=== PATIENT | male | born 1965 | race Hispanic/Latino ===

== ENCOUNTER 2022-02-10 09:47 | Inpatient (IN) | payer BC, OTHER, SELFPAY ==
[2022-02-10] MEDS ORDERED: levETIRAcetam 500 MG/5 ML VIAL ONE (09:58)
[2022-02-10] MEDS ORDERED: LORazepam 2 MG/ML SYR.(CARPUJECT) ONE (10:05)
[2022-02-10 10:09] LABS: Hemoglobin 16.6 g/dL (14.0-18.0); Mean Corpuscular HGB CONC 31.6 g/dL (32.0-36.0); Mean Corpuscular Hemoglobin 29.1 pg (27.0-31.0); Mean Corpuscular Volume 92.1 fl (78.0-98.0); Platelet Count 242 10x3/uL (130-400); RBC Distribution Width 11.9 % (11.5-14.5); White Blood Cell (WBC) Count 12.3 10x3/uL (4.8-10.8)
[2022-02-10] MEDS ORDERED: Rocuronium Bromide 10 MG/ML (10ML VIAL) ONE ×2 (10:11→10:12)
[2022-02-10 10:17] LABS: PTT 28.4 sec (22.9-36.1); Prothrombin Time 14.4 sec (12.0-14.7)
[2022-02-10 10:18] LABS: INR-International Normal Ratio 1.1
[2022-02-10 10:22] LABS: ALT (SGPT) 32 U/L (8-55); AST (SGOT) 20 U/L (5-34); Albumin 4.7 g/dL (3.5-5.0); Alkaline Phosphatase 114 U/L (40-110); Anion Gap 25 mmol/L (10-20); BUN (Urea Nitrogen) 19 mg/dL (8.4-25.7); Bilirubin, Total 0.6 mg/dL (0.2-1.2); CK (CPK) 139 U/L (30-200); Calc. Creatinine Clearance 0 mL/min (70-130); Calcium 10.4 mg/dL (7.8-10.44); Carbon Dioxide 18 mmol/L (22-29); Chloride 108 mmol/L (98-107); Estimated GFR 86; Globulin 4.1 g/dL (2.4-3.5); Glucose 151 mg/dL (70-105); Protein, Total 8.8 g/dL (6.0-8.3); Sodium 147 mmol/L (136-145)
[2022-02-10] MEDS ORDERED: Propofol 1,000 MG/100 ML VIAL IV ONE ×2 (10:23→12:40)
[2022-02-10 10:28] LABS: Eosinophils 3 % (0-10); Lymphocytes 46 % (21-51); MDiff Complete? YES; Monocytes 4 % (0-10); Neutrophil 45 % (42-75); Platelet Morphology Comment Appears Adequate; RBC Morphology Normal
[2022-02-10] MEDS ORDERED: Magnevist 469MG/ML 20 ML VIAL ONE (10:35)
[2022-02-10 10:38] LABS: Bilirubin Negative (Negative); Blood, Urine Large (Negative); Glucose, Urine (Dipstick) Negative (Negative); Ketone, Urine Negative (Negative); Leukocyte Negative (Negative); Nitrite Negative (Negative); Protein, Urine (Dipstick) 30 mg/dL (Neg-Trace); Urobilinogen 0.2 mg/dL (Less than 2); pH, Urine 5.5 (5.0-9.0)
[2022-02-10 10:40] LABS: Acetaminophen Less than 10.0 mcg/mL (10.0-30.0); Alcohol Less than 10 mg/dL (Less than 10); Salicylate Less than 8.0 mg/dL (15.0-30.0)
[2022-02-10 10:41] LABS: Clarity Hazy (Clear)
[2022-02-10 10:42] LABS: Specific Gravity, Urine 1.023 (1.002-1.036)
[2022-02-10 10:44] LABS: Amphetamine Not Detected (NotDetected); Barbiturates Screen Not Detected (NotDetected); Benzodiazepine Screen Not Detected (NotDetected); Cocaine Metabolite Screen Not Detected (NotDetected); Methadone Not Detected (NotDetected); Methamphetamine Not Detected (NotDetected); Opiate Screen Not Detected (NotDetected); Oxycodone Screen Not Detected (NotDetected); Phencyclidine (PCP) Not Detected (NotDetected); THC/Cannabinoid Screen Not Detected (NotDetected); Tricyclic Screen Not Detected (NotDetected)
[2022-02-10 10:47] LABS: Bacteria/HPF None Seen HPF (None Seen); RBC/HPF Greater than 50 HPF (0-3); Sperm/HPF 2+ HPF (None Seen); Squamous Epithelial 0-3 HPF (0-3)
[2022-02-10 11:01] LABS: Analyzer IN Cardio ER; Calcium, Ionized (venous) 1.09 mmol/L (1.16-1.32); Chloride (VBG) 105 mmol/L (98-106); Hemoglobin (Hb) 16.8 g/dL (13.1-17.2); Potassium (VBG) 3.44 mmol/L (3.70-5.30); Sodium 141.5 mmol/L (133-146)
[2022-02-10 11:10] LABS: Analyzer IN Cardio ER; Base Excess (BEa) -8.8 mEq/L (-2.0 to +3.0); CO2 Tension 41.7 mmHg (35.0-45.0); Calcium, Ionized (arterial) 1.13 mmol/L (1.12-1.30); Carboxyhemoglobin (COHb) 0.4 gm% (0.0-3.0); Hemoglobin (Hb) 14.7 g/dL (14.0-18.0); O2 Tension (PaO2), arterial 72.8 mmHg (80.0-100.0); Potassium - ABG Lab 3.74 mmol/L (3.70-5.30); pH, Arterial 7.25 (7.35-7.45)
[2022-02-10 11:22] LABS: Actual Bicarbonate (HCO3v) 14 mEq/L (22-28); pH (venous) 7.15 (7.32-7.43)
[2022-02-10 11:23] LABS: Puncture Site RRA
[2022-02-10 11:24] LABS: ALV-art Gradient 231.575 mmHg (0-20)
[2022-02-10] MEDS ORDERED: Electrolyte Replacement Protocol 1 EACH IVPB PRN (12:08)
[2022-02-10] MEDS ORDERED: Ondansetron PF 4 MG/2 ML Vial IVP PRN (12:08)
[2022-02-10] MEDS ORDERED: Acetaminophen 650 MG Suppository PR PRN (12:08)
[2022-02-10] MEDS ORDERED: Dextrose 50% Abboject 50 ML SYRINGE SLOW IVP PRN (12:08)
[2022-02-10] MEDS ORDERED: Dextrose 5% in Water 1,000 ML IV PRN (12:08)
[2022-02-10] MEDS ORDERED: Insulin Regular 300 UNITS/3 ML VIAL SC PRN (12:08)
[2022-02-10] MEDS ORDERED: Ventilator Sedation Protocol 1 EACH FS SCH (12:15)
[2022-02-10 12:26] LABS: SARS-CoV-2 NAA Rapid Test Not Detected (NotDetected)
[2022-02-10] MEDS ORDERED: Lorazepam 2 MG/ML VIAL SLOW IVP PRN (12:28)
[2022-02-10] MEDS ORDERED: Midazolam HCl 2 mg/2 ml Vial SLOW IVP PRN (12:35)
[2022-02-10] MEDS ORDERED: DISCONTINUE PREVIOUS NARCOTIC PAIN MEDICATIONS AND BENZODIAZEPINES FS SCH (12:45)
[2022-02-10] MEDS ORDERED: Propofol BOLUS 1,000 MG/100 ML VIAL IV PRN (12:45)
[2022-02-10] MEDS ORDERED: Fentanyl CADD 100 ML IV SCH (12:45)
[2022-02-10] MEDS ORDERED: Fentanyl BOLUS 250 ML IVPB PRN (12:45)
[2022-02-10] MEDS: Morphine 4 MG/ML VIAL SLOW IVP PRN (14:33)
[2022-02-10] MEDS: Lactated Ringer's 1,000 ML IV SCH ×2 (14:33→22:22)
[2022-02-10 14:42] LABS: Lactic Acid 3.1 mmol/L (0.5-2.2)
[2022-02-10] MEDS: Propofol 1,000 MG/100 ML VIAL IV PRN ×4 (15:35→23:19)
[2022-02-10] MEDS ORDERED: Iopamidol-370 76% 500 ML 1 ML ONE (15:57)
[2022-02-10 18:58] LABS: Lactic Acid 2.5 mmol/L (0.5-2.2)
[2022-02-10] MEDS: levETIRAcetam 500 MG/5 ML VIAL SLOW IVP SCH (20:08)
[2022-02-10] MEDS: Famotidine/PF 20 mg/2ml Vial SLOW IVP SCH (20:08)
[2022-02-10 22:18] LABS: Lactic Acid 2.3 mmol/L (0.5-2.2)
[2022-02-11] MEDS ORDERED: Magnesium 2 GM/50 ML(in water) 2 GM in Premix Bag 1 BAG IVPB SCH ×2 (02:30→20:00)
[2022-02-11] MEDS: Propofol 1,000 MG/100 ML VIAL IV PRN ×3 (02:55→11:40)
[2022-02-11 04:32] LABS: #Lymphocytes 1.8 thou/uL (1.20-3.40); #Monocytes 1.2 thou/uL (0.11-0.59); #Neutrophils 9.3 thou/uL (1.40-6.50); %Basophils 0.3 % (0.0-1.0); %Eosinophils 0.2 % (0.0-10.0); %Lymphocytes 14.7 % (21.0-51.0); %Neutrophils 74.9 % (42.0-75.0); Hemoglobin 14.6 g/dL (14.0-18.0); Mean Corpuscular HGB CONC 34.3 g/dL (32.0-36.0); Mean Corpuscular Hemoglobin 30.6 pg (27.0-31.0); Mean Corpuscular Volume 89.3 fl (78.0-98.0); Mean Platelet Volume 9.1 fL (7.4-10.4); Platelet Count 207 10x3/uL (130-400); Red Blood Cell (RBC) Count 4.78 mill/uL (4.70-6.10); White Blood Cell (WBC) Count 12.4 10x3/uL (4.8-10.8)
[2022-02-11 05:01] LABS: Anion Gap 12 mmol/L (10-20); BUN (Urea Nitrogen) 11 mg/dL (8.4-25.7); Calc. Creatinine Clearance 132 mL/min (70-130); Calcium 8.7 mg/dL (7.8-10.44); Carbon Dioxide 24 mmol/L (22-29); Chloride 104 mmol/L (98-107); Estimated GFR 102; Glucose 146 mg/dL (70-105); Magnesium 2.6 mg/dL (1.6-2.6); Potassium 3.8 mmol/L (3.5-5.1); Sodium 136 mmol/L (136-145)
[2022-02-11 05:55] VITALS: BMI 33.9
[2022-02-11] MEDS: Morphine 4 MG/ML VIAL SLOW IVP PRN (07:58)
[2022-02-11] MEDS: Famotidine/PF 20 mg/2ml Vial SLOW IVP SCH ×2 (08:08→20:38)
[2022-02-11] MEDS: levETIRAcetam 500 MG/5 ML VIAL SLOW IVP SCH ×2 (08:08→20:38)
[2022-02-11] MEDS: Lactated Ringer's 1,000 ML IV SCH ×2 (08:18→19:14)
[2022-02-11] MEDS ORDERED: Piperacillin/Tazobactam 3.375 GM in Sodium Chloride 0.9% 100 ML IVPB SCH (09:15)
[2022-02-11] MEDS ORDERED: Piperacillin/Tazobactam 2.25 GM in Sodium Chloride 0.9% 100 ML IVPB SCH (12:00)
[2022-02-11] MEDS: Piperacillin/Tazobactam 3.375 GM in Sodium Chloride 0.9% 100 ML IVPB SCH ×2 (14:39→21:35)
[2022-02-11 17:55] LABS: #Lymphocytes 1.6 thou/uL (1.20-3.40); #Monocytes 1.3 thou/uL (0.11-0.59); #Neutrophils 11.4 thou/uL (1.40-6.50); %Basophils 0.3 % (0.0-1.0); %Eosinophils 0.1 % (0.0-10.0); %Lymphocytes 11.1 % (21.0-51.0); %Monocytes 8.9 % (0.0-10.0); %Neutrophils 79.6 % (42.0-75.0); Hemoglobin 14.4 g/dL (14.0-18.0); Mean Corpuscular HGB CONC 33.5 g/dL (32.0-36.0); Mean Corpuscular Hemoglobin 30.1 pg (27.0-31.0); Mean Corpuscular Volume 89.8 fl (78.0-98.0); Mean Platelet Volume 8.9 fL (7.4-10.4); Platelet Count 207 10x3/uL (130-400); RBC Distribution Width 11.9 % (11.5-14.5); Red Blood Cell (RBC) Count 4.79 mill/uL (4.70-6.10); White Blood Cell (WBC) Count 14.4 10x3/uL (4.8-10.8)
[2022-02-11] MEDS: Acetaminophen 325 MG TAB PO PRN (18:03)
[2022-02-11 18:23] LABS: Lactic Acid 1.2 mmol/L (0.5-2.2)
[2022-02-11 18:24] LABS: ALT (SGPT) 20 U/L (8-55); AST (SGOT) 14 U/L (5-34); Albumin 3.8 g/dL (3.5-5.0); Alkaline Phosphatase 88 U/L (40-110); Anion Gap 10 mmol/L (10-20); BUN (Urea Nitrogen) 13 mg/dL (8.4-25.7); Bilirubin, Total 1.2 mg/dL (0.2-1.2); Calc. Creatinine Clearance 125 mL/min (70-130); Carbon Dioxide 27 mmol/L (22-29); Chloride 104 mmol/L (98-107); Estimated GFR 101; Globulin 3.5 g/dL (2.4-3.5); Glucose 141 mg/dL (70-105); Potassium 3.7 mmol/L (3.5-5.1); Protein, Total 7.3 g/dL (6.0-8.3); Sodium 137 mmol/L (136-145)
[2022-02-12] MEDS: Lactated Ringer's 1,000 ML IV SCH ×3 (00:09→21:05)
[2022-02-12 04:19] LABS: Hemoglobin A1c 6.7 % (4.0-6.0)
[2022-02-12 04:35] LABS: Magnesium 2.2 mg/dL (1.6-2.6)
[2022-02-12] MEDS: Piperacillin/Tazobactam 3.375 GM in Sodium Chloride 0.9% 100 ML IVPB SCH ×3 (05:18→21:03)
[2022-02-12] MEDS: levETIRAcetam 500 MG/5 ML VIAL SLOW IVP SCH (08:25)
[2022-02-12] MEDS: Famotidine/PF 20 mg/2ml Vial SLOW IVP SCH (08:25)
[2022-02-12] MEDS ORDERED: traMADol HCl 50 MG TAB PO SCH (10:00)
[2022-02-12] MEDS: Acetaminophen 325 MG TAB PO PRN (13:56)
[2022-02-12 16:24] LABS: ALT (SGPT) 17 U/L (8-55); AST (SGOT) 15 U/L (5-34); Albumin 3.7 g/dL (3.5-5.0); Alkaline Phosphatase 84 U/L (40-110); Anion Gap 12 mmol/L (10-20); BUN (Urea Nitrogen) 11 mg/dL (8.4-25.7); Bilirubin, Total 0.9 mg/dL (0.2-1.2); Calc. Creatinine Clearance 132 mL/min (70-130); Calcium 8.8 mg/dL (7.8-10.44); Carbon Dioxide 25 mmol/L (22-29); Chloride 104 mmol/L (98-107); Estimated GFR 102; Globulin 3.5 g/dL (2.4-3.5); Glucose 120 mg/dL (70-105); Potassium 3.4 mmol/L (3.5-5.1); Protein, Total 7.2 g/dL (6.0-8.3); Sodium 138 mmol/L (136-145)
[2022-02-12] MEDS: Insulin Regular 300 UNITS/3 ML VIAL SC PRN (17:24)
[2022-02-12] MEDS ORDERED: HYDROcodone/Acetaminophen 5/325 mg Tablet PO SCH (20:11)
[2022-02-12] MEDS: Famotidine 20 MG TAB PO SCH (21:03)
[2022-02-12] MEDS: levETIRAcetam 500 MG TAB PO SCH (21:03)
[2022-02-13] MEDS: Piperacillin/Tazobactam 3.375 GM in Sodium Chloride 0.9% 100 ML IVPB SCH (05:50)
[2022-02-13] MEDS: Insulin Regular 300 UNITS/3 ML VIAL SC PRN (05:52)
[2022-02-13] MEDS: Acetaminophen 325 MG TAB PO PRN (08:23)
[2022-02-13] MEDS: levETIRAcetam 500 MG TAB PO SCH (08:24)
[2022-02-13] MEDS: Lactated Ringer's 1,000 ML IV SCH (08:24)
[2022-02-13] MEDS: Famotidine 20 MG TAB PO SCH (08:24)
[2022-02-13] MEDS ORDERED: levETIRAcetam 500 MG TAB PO SCH (09:00)
[2022-02-13 10:01] LABS: Hemoglobin 13.6 g/dL (14.0-18.0); Mean Corpuscular Hemoglobin 30.7 pg (27.0-31.0); Mean Corpuscular Volume 90.2 fl (78.0-98.0); Platelet Count 193 10x3/uL (130-400); RBC Distribution Width 11.7 % (11.5-14.5); Red Blood Cell (RBC) Count 4.43 mill/uL (4.70-6.10); White Blood Cell (WBC) Count 9.2 10x3/uL (4.8-10.8)
[2022-02-13 10:05] LABS: Anion Gap 12 mmol/L (10-20); BUN (Urea Nitrogen) 12 mg/dL (8.4-25.7); Calc. Creatinine Clearance 147 mL/min (70-130); Calcium 8.8 mg/dL (7.8-10.44); Carbon Dioxide 24 mmol/L (22-29); Chloride 104 mmol/L (98-107); Estimated GFR 105; Glucose 144 mg/dL (70-105); Potassium 3.7 mmol/L (3.5-5.1); Sodium 136 mmol/L (136-145)
[2022-02-13 12:07] VITALS: BP 122/66; TEMP 98
== END 2022-02-13 13:10 | disposition home or self-care (01) | DRG 70 ==
LOC: ERS 09:47 → CCU 14:02 → NEURO 02-12 17:44
PROVIDERS: ADMIT Internal Medicine; ATTEND Internal Medicine
PROC: 5A1935Z Respiratory Ventilation, Less than 24 Consecutive Hours (ICD-10-PCS; principal; 2022-02-10)
PROC: 0BH17EZ Insertion of Endotracheal Airway into Trachea, Via Natural or Artificial Opening (ICD-10-PCS; 2022-02-10)
DX: G93.89 Other specified disorders of brain (principal); J96.00 Acute respiratory failure, unspecified whether with hypoxia or hypercapnia; B69.0 Cysticercosis of central nervous system; E87.20 Acidosis, unspecified; E87.0 Hyperosmolality and hypernatremia; R56.9 Unspecified convulsions; Z20.822 Contact with and (suspected) exposure to COVID-19; E11.65 Type 2 diabetes mellitus with hyperglycemia; I10 Essential (primary) hypertension; Z78.1 Physical restraint status
CPT/HCPCS: 36415; 36416; 36600; 70450; 70496; 70498; 70553; 71045; 80048; 80053; 80306; 80307; 81003; 81015; 82550; 82805; 83036; 83605; 83735; 84146; 84443; 84484; 85025; 85027; 85610; 85730; 87040; 93005; 94002; 94003; 95712; 95816; 95819; 95957; A9579; J1815; J1953; J2060; J2250; J2270; J2543; J2704; J3475; J3490; J7120; Q9967; S0028

== ENCOUNTER 2022-03-07 03:00 | Observation (INO) | payer SELFPAY ==
[2022-03-07] MEDS ORDERED: Morphine 4 MG/ML VIAL ONE (04:02)
[2022-03-07] MEDS ORDERED: Ondansetron PF 4 MG/2 ML Vial ONE ×3 (04:02→11:33)
[2022-03-07 04:37] LABS: #Eosinphils 0.1 thou/uL (0.0-0.7); #Lymphocytes 1.3 thou/uL (1.20-3.40); #Neutrophils 11.4 thou/uL (1.40-6.50); %Basophils 0.1 % (0.0-1.0); %Eosinophils 0.5 % (0.0-10.0); %Lymphocytes 9.6 % (21.0-51.0); %Monocytes 6.9 % (0.0-10.0); %Neutrophils 82.9 % (42.0-75.0); Hemoglobin 14.7 g/dL (14.0-18.0); Mean Corpuscular HGB CONC 33.8 g/dL (32.0-36.0); Mean Corpuscular Hemoglobin 30.3 pg (27.0-31.0); Mean Corpuscular Volume 89.6 fl (78.0-98.0); Mean Platelet Volume 9.5 fL (7.4-10.4); Platelet Count 197 10x3/uL (130-400); RBC Distribution Width 11.9 % (11.5-14.5); Red Blood Cell (RBC) Count 4.85 mill/uL (4.70-6.10); White Blood Cell (WBC) Count 13.8 10x3/uL (4.8-10.8)
[2022-03-07 04:56] LABS: Bilirubin Negative (Negative); Blood, Urine Negative (Negative); Clarity Clear (Clear); Glucose, Urine (Dipstick) Normal (Negative); Ketone, Urine Negative (Negative); Leukocyte Negative Leu/uL (Negative); Nitrite Negative (Negative); Protein, Urine (Dipstick) Negative (Neg-Trace); Specific Gravity, Urine 1.025 (1.002-1.036); Urobilinogen Normal mg/dL (Less than 2)
[2022-03-07 04:59] LABS: ALT (SGPT) 36 U/L (8-55); AST (SGOT) 23 U/L (5-34); Albumin 4.1 g/dL (3.5-5.0); Alkaline Phosphatase 110 U/L (40-110); Anion Gap 13 mmol/L (10-20); BUN (Urea Nitrogen) 17 mg/dL (8.4-25.7); Bilirubin, Total 0.5 mg/dL (0.2-1.2); Calc. Creatinine Clearance 0 mL/min (70-130); Calcium 9.5 mg/dL (7.8-10.44); Carbon Dioxide 25 mmol/L (22-29); Chloride 102 mmol/L (98-107); Estimated GFR 103; Globulin 3.3 g/dL (2.4-3.5); Glucose 142 mg/dL (70-105); Lipase 29 U/L (8-78); Potassium 4.1 mmol/L (3.5-5.1); Protein, Total 7.4 g/dL (6.0-8.3); Sodium 136 mmol/L (136-145)
[2022-03-07] MEDS ORDERED: Morphine 4 MG/ML VIAL SLOW IVP PRN ×3 (07:45→12:08)
[2022-03-07] MEDS ORDERED: Ondansetron PF 4 MG/2 ML Vial IVP PRN ×2 (07:45→11:51)
[2022-03-07] MEDS ORDERED: Ondansetron ODT 4 MG TAB PO PRN (07:45)
[2022-03-07 07:54] LABS: SARS-CoV-2 NAA Rapid Test Not Detected (NotDetected)
[2022-03-07] MEDS ORDERED: Piperacillin/Tazobactam 3.375 GM in Sodium Chloride 0.9% 100 ML IVPB SCH (08:00)
[2022-03-07] MEDS ORDERED: cefOXitin 2 GM in Sodium Chloride 0.9% 100 ML IVPB SCH (08:00)
[2022-03-07 08:21] VITALS: BMI 34.7
[2022-03-07] MEDS: Sodium Chloride 0.9% 1,000 ML IV SCH ×2 (09:11→14:25)
[2022-03-07] MEDS ORDERED: cefOXitin 2 GM VIAL ONE (10:09)
[2022-03-07] MEDS ORDERED: Sodium Chloride 0.9% 100 ML ONE (10:09)
[2022-03-07] MEDS ORDERED: Iopamidol 370 76% 100 ML VIAL ONE (10:33)
[2022-03-07] MEDS ORDERED: Bupivacaine/Epinephrine 0.25% 30 ML VIAL ONE (10:38)
[2022-03-07] MEDS ORDERED: Lidocaine 2% 6 ML SYR ONE (10:49)
[2022-03-07] MEDS ORDERED: Fentanyl 250 MCG/5 ML VIAL ONE (10:49)
[2022-03-07] MEDS ORDERED: Rocuronium Bromide 10 MG/ML (10ML VIAL) ONE (10:57)
[2022-03-07] MEDS ORDERED: PROPOFOL 200 MG/20 ML VIAL ONE (10:57)
[2022-03-07] MEDS ORDERED: Ketorolac Tromethamine 30 MG/ML VIAL ONE (10:57)
[2022-03-07] MEDS ORDERED: SUGAMMADEX SODIUM 200 MG/2 ML VIAL ONE (11:33)
[2022-03-07] MEDS ORDERED: Promethazine HCl 25 MG/ML VIAL IM PRN ×2 (11:51→11:54)
[2022-03-07] MEDS ORDERED: HYDROcodone/Acetaminophen 10/325 mg Tablet PO PRN ×2 (11:51)
[2022-03-07] MEDS ORDERED: Morphine 2 MG/ML VIAL SLOW IVP PRN (11:51)
[2022-03-07] MEDS ORDERED: Dextrose 50% Abboject 50 ML SYRINGE SLOW IVP PRN (11:51)
[2022-03-07] MEDS ORDERED: Dextrose 5% in Water 1,000 ML IV PRN (11:51)
[2022-03-07] MEDS ORDERED: hydrALAZINE 20 MG/ML VIAL SLOW IVP PRN (11:51)
[2022-03-07] MEDS ORDERED: Promethazine HCl 25 MG/ML VIAL IVPB PRN (11:54)
[2022-03-07] MEDS ORDERED: Ondansetron HCl/PF 4 MG/2 ML Vial IVP PRN (11:54)
[2022-03-07] MEDS ORDERED: HYDROmorphone 2 MG/ML VIAL SLOW IVP PRN (11:54)
[2022-03-07] MEDS ORDERED: Sodium Chloride 0.9% 1,000 ML IV SCH (12:00)
[2022-03-07] MEDS ORDERED: Ketorolac Tromethamine 30 MG/ML VIAL IVP SCH (12:00)
[2022-03-07] MEDS ORDERED: FLU VACC QS2022-23(6MOS UP)/PF 60 MCG/0.5 ML SYRINGE IM ONE (14:00)
[2022-03-07] MEDS ORDERED: Docusate 100 MG CAP PO PRN (14:26)
[2022-03-07 16:57] VITALS: BP 110/68; TEMP 98.3
[2022-03-07] MEDS ORDERED: metFORMIN 500 MG TAB PO SCH (17:00)
[2022-03-07] MEDS ORDERED: Famotidine/PF 20 mg/2ml Vial SLOW IVP SCH (21:00)
[2022-03-07] MEDS ORDERED: levETIRAcetam 500 MG TAB PO SCH (21:00)
[2022-03-07] MEDS ORDERED: Famotidine 20 MG TAB PO SCH (21:00)
[2022-03-08] MEDS ORDERED: Enoxaparin Sodium 40 MG/0.4 ML SYRINGE SC SCH (09:00)
== END 2022-03-07 16:40 | disposition home or self-care (01) ==
LOC: ERS 03:00 → T4-B 07:47
PROVIDERS: ADMIT Surgery; ATTEND Surgery
PROC: 0DTJ4ZZ Resection of Appendix, Percutaneous Endoscopic Approach (ICD-10-PCS; principal; 2022-03-07)
DX: K35.31 Acute appendicitis with localized peritonitis and gangrene, without perforation (principal); K38.8 Other specified diseases of appendix; E11.9 Type 2 diabetes mellitus without complications; G40.909 Epilepsy, unspecified, not intractable, without status epilepticus; G93.9 Disorder of brain, unspecified; R91.1 Solitary pulmonary nodule; Z86.16 Personal history of COVID-19; Z79.84 Long term (current) use of oral hypoglycemic drugs; Z79.899 Other long term (current) drug therapy; Z20.822 Contact with and (suspected) exposure to COVID-19
CPT/HCPCS: 36415; 71045; 74177; 80053; 81003; 83690; 85025; 87040; 88304; 93005; 93010; 96361; 96374; 96375; A4649; G0378; J0694; J1885; J2270; J2405; J2543; J2704; J3010; J3490; J7050; Q9967; U0002

== ENCOUNTER 2022-06-05 12:18 | Outpatient (CLI) | payer BC | END 2022-06-05 12:19 | disposition home or self-care (01) | LOC: MRI 12:18 | DX: G93.9 Disorder of brain, unspecified (principal) | CPT/HCPCS: 70553 ==

== ENCOUNTER 2022-07-01 19:00 | Outpatient (CLI) | payer BC | END 2022-07-01 19:01 | disposition home or self-care (01) | LOC: SLEEPLAB 19:00 | PROVIDERS: ATTEND Family Medicine | DX: G47.33 Obstructive sleep apnea (adult) (pediatric) (principal); G47.61 Periodic limb movement disorder | CPT/HCPCS: 95811 ==